=== PATIENT | male | born 1965 | race Caucasian/White ===

== ENCOUNTER 2016-04-17 13:32 | Day surgery (SDC) | payer BC ==
[~2016-04-17] VITALS: Ht 165.1 cm; Wt 75.9 kg
[2016-04-17 14:07] VITALS: Ht 165.1 cm; Wt 75.9 kg
[2016-04-17 14:28] VITALS: BP 146/81; PULSE 88; RESP 20
[2016-04-17] MEDS ORDERED: MIDAZOLAM 1 MG/ML 2 ML INJ ONE ×5 (15:34→15:36)
[2016-04-17] MEDS ORDERED: FENTAnyl 50 MCG/ML VIAL ONE (15:35)
[2016-04-17 15:40] VITALS: BP 122/61; PULSE 88; RESP 16
[2016-04-17 16:20] VITALS: BP 117/78; PULSE 78; RESP 19
--- NOTE | 2016-04-17 18:47 | CONS ---
DATE OF ADMISSION: 04/17/2016 DATE OF CONSULTATION: TYPE OF CONSULTATION: PREOPERATIVE GASTROENTEROLOGY CONSULTATION HISTORY OF PRESENT ILLNESS: Mr. Jp Deng is a 50-year-old male patient who has been ref erred to me for further evaluation of abdominal pain. The patient states he has got epigastric pain as well as pain in the left lower quadrant. There is no past history of peptic ulcer disease. He is not taking any nonsteroidal anti-inflammatory agents. His appetite has been good and he is not l osing any weight. The patient also complains of chronic heartburn and burping. There is no history of gallstones. He does not have any fever, chills or jaundice. There is no history of liver disea se. The patient complains of left lower quadrant abdominal pain. He denies any change in the bowel habit or rectal bleeding. There is no past history of inflammatory bowel disease or colon neoplasm . The patient never got a screening colonoscopy. He is not a hypertensive or diabetic. He does no t have any heart disease or lung problem. There is no history of kidney disease. SOCIAL HISTORY: He is a nonsmoker. He does not abuse alcohol. FAMILY HISTORY: Negative for gastrointestinal tract neoplasm. ALLERGIES: THERE IS NO HISTORY OF SIGNIFICANT DRUG ALLERGY. MEDICATIONS: None. PHYSICAL EXAMINATION: GENERAL: He is 5 feet 5 inches tall and he weighs 165 pounds. HEART: Examination of the heart reveals normal first and second heart sounds. LUNGS: Clear. ABDOMEN: Soft without any distention. Liver and spleen are not palpable. There are no masses. Th ere is no focal tenderness. Normal bowel sounds are heard. CENTRAL NERVOUS SYSTEM: Does not reveal any focal neurological deficit. IMPRESSION: 1. Upper abdominal pain. 2. Chronic heartburn and burping. 3. Left lower quadrant abdominal pain. 4. The patient never got screening colonoscopy. PLAN: 1. Pantoprazole 40 mg p.o. q.a.m. 2. Endoscopic examination to rule out peptic ulcer disease and erosive esophagitis. 3. Screening colonoscopy. The procedures and possible complications are well explained to the patient. He understands and con sents to the procedures. I thank you once again. With warmest personal regards, Dictated By: EVELYN QUIROS/DENISE Conf#: [id number] DID#: [id number] CC: EVELYN HAIR MD;*[facility]*
--- NOTE | 2016-04-17 20:09 | GILP ---
DATE OF PROCEDURE: NAME OF PROCEDURES: 1. Esophagogastroduodenoscopy and biopsy. 2. Colonoscopy. SURGEON: Evelyn Pantoja MD PREOPERATIVE DIAGNOSES: 1. Abdominal pain. 2. Chronic heartburn. 3. Screening colonoscopy. POSTOPERATIVE DIAGNOSES: 1. Hiatal hernia. 2. Gastroesophageal reflux disease. 3. Gastritis. 4. Gastric mucosal biopsies were taken for Helicobacter pylori test. 5. Colonoscopy all the way to the cecum. 6. Small internal hemorrhoids. 7. No colon neoplasm was identified. INDICATION FOR THE PROCEDURE: Mr. Jp Clark is a 50-year-old male patient who had abdomi nal pain and chronic heartburn not responding to therapy. The patient also needed screening colonos copy. The procedures and possible complications were well explained to the patient. He understood and con sented to the procedures. DESCRIPTION OF PROCEDURE: Under the influence of fentanyl and Versed, the gastroscope was carefully introduced into the esophagus, and under direct vision, it was advanced to the stomach and through the pylorus into the duodenal bulb and descending duodenum. FINDINGS: ESOPHAGUS: The patient had hiatal hernia and gastroesophageal reflux disease. STOMACH: He had gastritis. Gastric mucosal biopsies were taken for H pylori test. DUODENUM: Normal. The colonoscope was carefully introduced in the rectum, and under direct vision, it was advanced all the way to the cecum. FINDINGS: The patient had small internal hemorrhoids. No colon neoplasm was identified. He tolerated the procedures very well. There was no complication from the procedures. At the end o f the procedures, he was awake with stable vital signs, and he was discharged home to care of his [facility]. IMPRESSION: 1. Hiatal hernia. 2. Gastroesophageal reflux disease. 3. Gastritis with erosions. 4. Gastric mucosal biopsies were taken for Helicobacter pylori test. 5. Colonoscopy all the way to the cecum. 6. Small internal hemorrhoids. 7. No colon neoplasm was identified. PLAN: 1. Pantoprazole 40 mg p.o. q.a.m. 2. Bentyl 10 mg p.o. t.i.d. p.r.n. for pain. 3. Abdominal ultrasound for further evaluation of abdominal pain. 4. Await histopathology report. Dictated By: EVELYN QUIROS/DENISE Conf#: [id number] DID#: [id number]
== END 2016-04-17 15:59 | disposition home or self-care (01) ==
LOC: GIL 13:32
PROVIDERS: ATTEND Internal Medicine Gastroenterology
DX: Z12.11 Encounter for screening for malignant neoplasm of colon (principal); K44.9 Diaphragmatic hernia without obstruction or gangrene; K21.9 Gastro-esophageal reflux disease without esophagitis; K29.70 Gastritis, unspecified, without bleeding; K64.8 Other hemorrhoids
CPT/HCPCS: 43239; 45378; 88305; 88312; J2250; J3010